=== PATIENT | female | born 1940 | race Caucasian/White ===

== ENCOUNTER 2017-05-31 08:55 | Outpatient (CLI) | payer OTHER ==
[~2017-05-31 08:55] MED LIST: CARAFATE1 G; PERCOCET 10-3251 TAB; PREVACID30 MG; PROTONIX40 M1
[2017-05-31] MEDS ORDERED: SYNTHROID50 MCG PO (14:06)
== END 2017-05-31 09:09 | disposition home or self-care (01) ==
LOC: LAB 08:55
DX: D68.8 Other specified coagulation defects (principal)

== ENCOUNTER 2017-06-04 06:08 | Day surgery (SDC) | payer OTHER ==
[~2017-06-04 06:08] MED LIST changes: +SYNTHROID50 MCG PO
== END 2017-06-04 11:30 | disposition home or self-care (01) ==
LOC: CIR.AMB 06:08
DX: M54.06 Panniculitis affecting regions of neck and back, lumbar region (principal); M54.07 Panniculitis affecting regions of neck and back, lumbosacral region

== ENCOUNTER 2017-08-06 07:39 | Day surgery (SDC) | payer OTHER ==
[~2017-08-06 07:39] MED LIST changes: +CLONAZEPAM0.5 MG PO
== END 2017-08-06 15:25 | disposition home or self-care (01) ==
LOC: CIR.AMB 07:39 → RECOVERY 13:21 → EDSTATUS 13:52 → CIR.AMB 13:52
DX: M47.892 Other spondylosis, cervical region (principal)

== ENCOUNTER 2017-09-13 17:03 | Emergency (ER) | payer OTHER ==
[~2017-09-13] VITALS: Ht 157.5 cm; Wt 59.9 kg
[2017-09-13] MEDS ORDERED: PERCOCET 5-3251 EACH PO (21:02)
== END 2017-09-13 21:46 | disposition home or self-care (01) ==
LOC: ER 17:03
DX: G89.21 Chronic pain due to trauma (principal); M54.5 Low back pain; M79.604 Pain in right leg